=== PATIENT | male | born 1975 | race African-American/Black ===

== ENCOUNTER 2022-07-18 05:51 | Emergency (ER) | payer BC ==
[~2022-07-18] VITALS: Ht 180.3 cm; Wt 81.6 kg
[2022-07-18 05:54] VITALS: BP_SYST 130
--- NOTE | 2022-07-18 06:06 | NUR ---
PT HERE ACCOMPANIED C/O LT EYE PAIN AND REDNESS SINCE 299. PT STATED THAT HE WOKE UP WITH EYE PAIN AND PER PT HE INSTILL NS. DENIES HEAD ACHE AND BLURRY VISION. DENIES DIZZINESS, HE STATED THAT THERE IS NO FOREIGN BODY ON AFFECTED AREA. PMH:DENIES PT AAOX4, NO SOB NOTED. PT ASSISTED TO RM 2, REPORT GIVEN TO KRISTA, PENDING MD GALAVIZ.
--- NOTE | 2022-07-18 06:14 | NUR ---
Pt from home with c/o left eye redness and pain that started with at 0300 today. P used NS to try and flush out eye. Pt VSS and connected to monitor.
--- NOTE | 2022-07-18 06:26 | NUR ---
Dr. Ozuna at bedside with patient for evaluation.
[2022-07-18] MEDS ORDERED: FLOEARD EACH EYE (06:40)
[2022-07-18] MEDS ORDERED: DIPHTH,PERTUSS(ACELL),TET VAC 0.5 ML VIAL (Tdap) I.M. ONE ×2 (06:45→07:08)
[2022-07-18 07:05] VITALS: BP_SYST 130
--- NOTE | 2022-07-18 07:05 | NUR ---
Patient given written and verbal discharge instructions and verbalizes understanding. ER Dr. Ozuna discussed with patient the results and treatment provided. Patient in stable condition. ID arm band removed. Rx of floxin given. Patient educated on pain management and to follow up with PMD. Pain Scale 0. Opportunity for questions provided and answered. Medication side effect fact sheet provided.
== END 2022-07-18 07:05 | disposition home or self-care (01) ==
LOC: SED 05:51
DX: S05.02XA Injury of conjunctiva and corneal abrasion without foreign body, left eye, initial encounter (principal); Z79.899 Other long term (current) drug therapy; X58.XXXA Exposure to other specified factors, initial encounter; Y93.89 Activity, other specified; Y92.89 Other specified places as the place of occurrence of the external cause; Y99.8 Other external cause status
CPT/HCPCS: 90715; 99283